=== PATIENT | male | born 1995 | race Caucasian/White ===

== ENCOUNTER 2024-08-04 00:13 | Emergency (ER) | payer MEDICAID ==
[~2024-08-04] VITALS: Ht 167.6 cm; Wt 69.0 kg
[2024-08-04 00:15] VITALS: TEMP 36.7; O2SAT 96
[2024-08-04 01:00] VITALS: BP 128/69; PULSE 110; RESP 22; O2SAT 98
== END 2024-08-04 01:21 | disposition home or self-care (01) ==
LOC: ER 00:13
DX: T51.0X1A Toxic effect of ethanol, accidental (unintentional), initial encounter (principal); E11.9 Type 2 diabetes mellitus without complications; Y92.9 Unspecified place or not applicable
CPT/HCPCS: 99283